=== PATIENT | female | born 1990 | race African-American/Black ===

== ENCOUNTER 2021-11-09 16:55 | Emergency (ER) | payer BC ==
[~2021-11-09] VITALS: Ht 167.6 cm; Wt 84.0 kg
[2021-11-09] MEDS ORDERED: SODIUM CHLORIDE 0.9% 1,000 ML IV ONE (17:15)
[2021-11-09 17:44] LABS: BASOPHILS % 0.4 % (0.0-2.0); EOSINOPHILS % 1.3 % (0.0-5.0); HEMATOCRIT. 31.2 % (36.0-48.0); HEMOGLOBIN. 10.2 g/dL (12.0-16.0); LYMPHOCYTES % 51.1 % (20.0-50.0); MEAN CORPUSCULAR VOLUME 76.6 fL (81.0-99.0); MEAN PLATELET VOLUME 7.6 fl (7.4-10.4); MONOCYTES % 9.3 % (2.0-8.0); NEUTROPHILS % 37.9 % (40.0-76.0); PLATELET 209 x1000/uL (130-400); RED BLOOD CELL COUNT 4.07 mill/uL (4.2-5.4); RED CELL DISTRIBUTION WIDTH 18.6 % (11.6-14.6)
[2021-11-09 17:50] LABS: CHLORIDE 106 mEq/L (98-107)
[2021-11-09 17:54] LABS: HCG SCREEN NEGATIVE
[2021-11-09 17:55] LABS: D-DIMER 2.11 mg/L FEU (<0.50); PROTHROMBIN TIME 10.8 sec (9.6-11.0)
[2021-11-09 17:58] VITALS: BP 120/90
[2021-11-09 18:15] LABS: CLARITY URINE CLEAR (CLEAR); COLOR URINE YELLOW (YELLOW); KETONES URINE TRACE (NEGATIVE); LEUKOCYTE ESTERASE URINE TRACE (NEGATIVE); NITRITE URINE NEGATIVE (NEGATIVE); OCCULT BLOOD URINE NEGATIVE (NEGATIVE); PROTEIN URINE NEGATIVE (NEGATIVE); SPECIFIC GRAVITY URINE 1.014 (1.005-1.030); UROBILINOGEN URINE 0.2 E.U./dL (0.2-1.0)
[2021-11-09] MEDS ORDERED: POTASSIUM CHLORIDE 20MEQ TABLET SR PO ONE (18:30)
[2021-11-09] MEDS ORDERED: POTA20TA82 MT (21:26)
[2021-11-09] MEDS ORDERED: IOHEXOL-350 100 ML BOTTLE ONE (21:35)
== END 2021-11-09 21:58 | disposition home or self-care (01) ==
LOC: ER 16:55
DX: R42 Dizziness and giddiness (principal); E87.6 Hypokalemia; E87.2 Acidosis; Z86.711 Personal history of pulmonary embolism; Z86.718 Personal history of other venous thrombosis and embolism
CPT/HCPCS: 36415; 71045; 71275; 80053; 81003; 83690; 83880; 84484; 84703; 85025; 85379; 85610; 93005; 93970; 96360; 96361; 99285; J7030; Q9967